=== PATIENT | male | born 1960 | race Caucasian/White ===

== ENCOUNTER 2022-06-12 18:04 | Emergency (ER) | payer BC ==
[2022-06-12 18:26] VITALS: BP 185/91; PULSE 60
[2022-06-12] MEDS ORDERED: Sodium Chloride 0.9% 10 ML Syringe FLUSH PRN (18:37)
== END 2022-06-12 20:46 | disposition home or self-care (01) ==
LOC: JD.ED 18:04
DX: R07.89 Other chest pain (principal); I25.10 Atherosclerotic heart disease of native coronary artery without angina pectoris; E78.00 Pure hypercholesterolemia, unspecified; I25.2 Old myocardial infarction; E66.9 Obesity, unspecified; Z68.30 Body mass index [BMI] 30.0-30.9, adult; Z79.899 Other long term (current) drug therapy; Z79.82 Long term (current) use of aspirin; Z87.891 Personal history of nicotine dependence; Z20.822 Contact with and (suspected) exposure to COVID-19
CPT/HCPCS: 36415; 71045; 80053; 83735; 84484; 85025; 85379; 85610; 87635; 93005; 99285; J3490; U0002

== ENCOUNTER 2024-05-26 15:13 | Emergency (ER) | payer BC, OTHER ==
[2024-05-26] MEDS: Ondansetron 4 MG/2 ML SDV IVPUSH ONE (15:45)
[2024-05-26] MEDS: HYDROmorphone 1 MG/ML Syringe IVPUSH ONE (15:46)
[2024-05-26] MEDS ORDERED: Sodium Chloride 0.9% 1,000 ML ONE (16:56)
[2024-05-26] MEDS: Sodium Chloride 0.9% 1,000 ML IV ONE (16:58)
[2024-05-26] MEDS: Propofol 200 MG/20 ML SDV IVPUSH ONE (16:58)
[2024-05-26 19:14] VITALS: BP 142/76; PULSE 64
== END 2024-05-26 19:13 | disposition home or self-care (01) ==
LOC: JD.ED 15:13
DX: S52.502A Unspecified fracture of the lower end of left radius, initial encounter for closed fracture (principal); S52.612A Displaced fracture of left ulna styloid process, initial encounter for closed fracture; I25.10 Atherosclerotic heart disease of native coronary artery without angina pectoris; I25.2 Old myocardial infarction; E78.00 Pure hypercholesterolemia, unspecified; E66.9 Obesity, unspecified; Z79.82 Long term (current) use of aspirin; Z79.899 Other long term (current) drug therapy; Z68.35 Body mass index [BMI] 35.0-35.9, adult; W11.XXXA Fall on and from ladder, initial encounter
CPT/HCPCS: 25605; 73070; 73100; 73110; 96374; 96375; 99283; J1170; J2405; J2704; J7030; 25565; 99152; 99284